=== PATIENT | female | born 1965 | race African-American/Black ===

== ENCOUNTER 2017-05-08 16:17 | Inpatient (IN) | payer OTHER ==
[~2017-05-08] VITALS: Ht 170.2 cm; Wt 111.1 kg
[~2017-05-08 16:17] MED LIST: ALBUTEROL2.5 MG/31 INH; FLEXERIL PO; IBUPROFEN 800800 M1 PO; NEURONTIN600 MG PO; PREDNISONE50 MG PO; SINGULAIR 10 MG10 M1 PO; VENTOLIN HFA 1818 GM INH
[2017-05-08 16:20] VITALS: BP 181/85
[2017-05-08 17:16] LABS: INFLUENZA A ANTIGEN None Detected (None Detect); INFLUENZA B ANTIGEN None Detected (None Detect)
[2017-05-08 17:17] LABS: HEMATOCRIT 38.6 % (37.0-47.0); HEMOGLOBIN 12.5 gm/dL (12.0-15.0); MCH 26.3 pg (26.0-34.0); MCHC 32.4 g/dL (28.0-37.0); MCV 81.2 fL (80.0-100.0); MPV 8.8 fl. (7.2-11.1); NUCLEATED RBCS 0 /100WBC; PLATELET COUNT* 251 thou/uL (150-400); RBC 4.75 mil/uL (4.20-5.00); RDW-CV 15.5 % (10.5-14.5); WBC 8.7 thou/uL (4.0-11.0)
[2017-05-08 17:25] LABS: CALCIUM 8.4 mg/dL (8.5-10.1); POTASSIUM 3.6 mmol/L (3.5-5.1)
[2017-05-08 17:36] LABS: ALBUMIN 3.7 g/dL (3.4-5.0); TOTAL BILIRUBIN 0.3 mg/dL (<0.1-1.0); TOTAL PROTEIN 7.6 g/dL (6.4-8.2)
[2017-05-08 17:38] LABS: NT-PRO BRAIN NAT PEPTIDE 90 pg/mL (<300); TROPONIN-I LEVEL <0.06 ng/mL (<0.06)
[2017-05-08 17:43] LABS: ABSOLUTE LYMPHOCYTES 0.5 thou/uL (0.8-5.3); ABSOLUTE MONOCYTES 0.1 thou/uL (0.0-1.2); ABSOLUTE NEUTROPHILS 8.1 thou/uL (1.6-8.1); PLATELET ESTIMATE ADEQUATE
[2017-05-08 19:03] VITALS: BP 155/85
[2017-05-08 20:00] VITALS: BP 154/89
[2017-05-09 00:38] VITALS: BP 152/88
[2017-05-09 04:05] VITALS: BP 165/95
--- NOTE | 2017-05-09 05:21 | NUR ---
PT ADMITTED FROM ER. HISTORY AND ASSESSMENT COMPLETE. O2 2L NC. CONTINUOUS PULSE OX. IVF STARTED. PT UP WITH STEADY GAIT. DENIES PAIN. CALL LIGHT IN REACH. BED IN LOWEST POSITION.
[2017-05-09 08:00] VITALS: BP 172/82
--- NOTE | 2017-05-09 08:20 | NUR ---
RECEIVED REPORT. ASSUMED CARE OF PT AT 0730. PT A&OX4. VSS. O2 SAT 100% ON 2L PER NC. CONTINUOUS O2 MONITORING IN PLACE. METAL PATTERNMAKER APPRENTICE IN PLACE TRACING SR. AM ASSESSMENT AND VITALS COMPLETED CHARTED. IV PATENT AND INFUSING. PT DENIES PAIN OR DISCOMFORT AT THIS TIME. PT GAIT STEADY AND COORDINATED - PT ABLE TO BE UP AD SANGEETA IN ROOM. FAMILY AT THE BEDSIDE. PT EATING AND DRINKING WITHOUT ISSUE. PT HAD BM THIS AM. PT INFORMED OF PLAN OF CARE. PT COMMUNICATES UNDERSTANDING. LOW FALL RISK PRECAUTIONS IN PLACE. CALL LIGHT IS WITHIN REACH. WILL CONTINUE TO MONITOR.
[2017-05-09 11:59] VITALS: BP 141/77
[2017-05-09 15:51] VITALS: BP 163/92
--- NOTE | 2017-05-09 19:37 | NUR ---
VSS. PT REMAINS A&O X4. O2 REMAINS >90% ON 2L PER NC. CARDIAC MONITOIR IN PLACE WITH NO CHANGES THIS SHIFT. IV PATENT AND INFUSING. PT EXPRESSED SOME ANXIETY OVER IV THERAPY; THERAPEUTIC COMMUNICATION INITIATED AND PT REASSURED. PT REPORTS BREATHING TREATMENTS ARE HELPING. PT UP AD SANGEETA TO THE BATHROOM WITHOUT ISSUES. PT EATING AND DRINKING WITHOUT ISSUE. FAMILY AT BEDSIDE. LOW FALL RISK PRECAUTIONS IN PLACE. CALL LIGHT IS WITHIN REACH. HOURLY ROUNDING PERFORMED.
[2017-05-09 20:00] VITALS: BP 143/84
[2017-05-10 00:18] VITALS: BP 157/91
--- NOTE | 2017-05-10 05:09 | NUR ---
PT CARE ASSUMED AFTER REPORT. ASSESSMENT COMPLETE. SR ON MONITOR. O2 2L NC. CONTINUOUS PULSE ON IN PLACE. IVF INFUSING WELL. PT RESTED POORLY R/T PRODUCTIVE COUGH. PT PROVIDED WITH HOT TEA TO RELIEVE COUGH. UP AD SANGEETA WITH STEADY GAIT. DAUGHTER AT BEDSIDE THROUGH THE NIGHT. CALL LIGHT IN REACH. BED IN LOWEST POSITION. SLOW TO PROGRESS TOWARDS GOALS. DENIES PAIN.
[2017-05-10 08:00] VITALS: BP 173/100
[2017-05-10 12:27] VITALS: BP 151/85
--- NOTE | 2017-05-10 13:03 | EKG ---
[place] [address] ELECTROCARDIOGRAM REPORT Name: CHRISTIANO BARNETT Room: [address] ADM IN M.R.#: [id number] Admission: 05/08/17 Attend Phys: Deandre Willoughby Discharge: Date of : 69 Report #: [id number] THIS REPORT FOR: //name// [facility] ED Test Date: 2017-05-08 Test Time: 16:26:04 Pat Name: CHRISTIANO BARNETT Department: Room: [facility] Gender: F Bottom Saw Operator: FLORA : 1965 Requested By: Silvio Nascimento Order Number: [id number] MD: Bo Pearson Measurements Intervals [place] Rate: 97 P: 70 MN: 148 QRS: 26 QRSD: 82 T: 22 QT: 357 QTc: 454 Interpretive Statements Sinus tachycardia Multiform ventricular premature complexes Probable left atrial enlargement No previous ECG available for comparison Electronically Signed On 05-10-2017 13:03:01 REMOTE PILOT OPERATOR by Bo Pearson [email or web address] <ELECTRONICALLY SIGNED> By: Bo Pearson MD, [facility] 05/10/17 1303 1626 162 Bo Pearson MD, [facility] /EPI
--- NOTE | 2017-05-10 14:45 | NUR ---
MET WITH PT TO DISCUSS HOME SITUATION/DC PLANNING. PT LIVES WITH HER ADULT DTR AND HER 4 CHILDREN. PT IS INDEPENDENT WITH HER ADLS AND ONLY USES A NEBULIZER. STATES SHE HAS BEEN ON MEDICAL LEAVE FROM HER JOB SINCE AUGUST. DID VOICE CONCERN ABOUT WHETHER SHE CAN CARE FOR HERSELF AT [place]. HASN'T HAD HH BUT IS INTERESTED IF IT IS COVERED BY HER INSURANCE. DISCUSSED OPTIONS AND WOULD WANT TO USE [facility] IF POSSIBLE. CALLED AND FAXED FACE SHEET TO [facility] TO CHECK BENEFITS
[2017-05-10 14:49] VITALS: BP 151/85
--- NOTE | 2017-05-10 16:31 | NUR ---
ASSUMED PT CARE AT 0700 PT IS ALERT AND ORIENTED X 4 PT IS NOT A FALL RISK PT IS UP AD SANGEETA, PT DENIES PAIN OR SOA, RESPIRTORY TOOK PT OFF OF O2 THIS AFTERNOON AND PT IS SATING ABOVE 90 PT IS SR ON MONITOR PT IS ON CONTINOUS O2 MONITORING, PT IS PLEASNAT AND COOPERATIVE, PT TOOK SHOWER, WILL CONTINUE TO MONITOR
[2017-05-10 16:45] VITALS: BP 146/87
[2017-05-10 20:00] VITALS: BP 149/70
[2017-05-11] VITALS: BP 164/86
--- NOTE | 2017-05-11 03:26 | NUR ---
ASSUMED CARE OF PATIENT AT 2029 THE PATIENT REMAINS SR ON THE MONITOR O2 SAT MAINTAINED ON RA EXCESSIVE SOA WITH EXERTION INCREASE WHEEZING AND RHONCI CONTINUES TO BE UP AD SANGEETA THE ROUTINE REGIMEN CONTINUES TO BE EFFECTIVE FOR SX MANAGEMENT SAFETY INTERVENTIONS CONTINUE BED LOWERED WHEELS LOCKED CALL LIGHT IN REACH SIDE RAILS UP REPORT TO BE GIVEN TO ONCARTURO PIERSON
[2017-05-11 04:00] VITALS: BP 163/76
[2017-05-11 08:00] VITALS: BP 160/80
[2017-05-11 11:22] VITALS: BP 165/96
--- NOTE | 2017-05-11 12:16 | NUR ---
PER [facility], PT HAS 100% COVERAGE FOR HH. DISCUSSED WITH PT. SHE WOULD LIKE TO HAVE HH AT [place] AND IS PLEASED HAS COVERAGE. WILL DISCUSS WTIH
[2017-05-11 13:52] LABS: HEMATOCRIT 34.6 % (37.0-47.0); HEMOGLOBIN 11.1 gm/dL (12.0-15.0); MCH 26.2 pg (26.0-34.0); MCHC 32.2 g/dL (28.0-37.0); MCV 81.6 fL (80.0-100.0); MPV 9.3 fl. (7.2-11.1); NUCLEATED RBCS 0 /100WBC; PLATELET COUNT* 262 thou/uL (150-400); RBC 4.25 mil/uL (4.20-5.00); RDW-CV 15.3 % (10.5-14.5); WBC 13.6 thou/uL (4.0-11.0)
[2017-05-11 13:58] LABS: CALCIUM 7.7 mg/dL (8.5-10.1); CREATININE 0.9 mg/dL (0.6-1.3); MAGNESIUM 2.2 mg/dL (1.8-2.4); POTASSIUM 3.7 mmol/L (3.5-5.1)
[2017-05-11 14:34] LABS: ABSOLUTE LYMPHOCYTES 2.2 thou/uL (0.8-5.3); ABSOLUTE MONOCYTES 0.4 thou/uL (0.0-1.2); ATYPICAL LYMPHS 1 %; HYPOCHROMASIA 2+; PLATELET ESTIMATE ADEQUATE
[2017-05-11 16:46] VITALS: BP 168/88
--- NOTE | 2017-05-11 18:30 | NUR ---
RECEIVED REPORT, ASSUMED CARE OF PT AT 0730. PT A&OX4. VSS. O2 SAT 93% ON ROOM AIR. CONTINUOUS O2 SAT MONITORING IN PLACE. PROGRAM ENGINEER IN PLACE TRACING SR, WITH NO CHANGES THIS SHIFT. AM ASSESSMENT AND VITALS COMPLETED CHARTED. PT INFORMED OF PLAN OF CARE, COMMUNICATES UNDERSTANDING. PT EATING AND DRINKING WITHOUT ISSUE. PT UP AD SANGEETA IN ROOM. FAMILY AT BEDSIDE OFF AND ON. PT CONTINUING TO RECEIVE BREATHING TREATMENTS. IV PATENT AND INFUSING. PT HAS DENIED PAIN OR DISCOMFORT THROUGHOUT THE SHIFT. PT VOIDING WITHOUT DIFFICUTLY. PT SLOWLY PROGRESSING TOWARDS GOALS. HOURLY ROUNDING PERFORMED. LOW RISK FALL PRECAUTIONS IN PLACE. CALL LIGHT IS WITHIN REACH.
[2017-05-11 20:00] VITALS: BP 148/88
[2017-05-12 00:05] VITALS: BP 158/83
[2017-05-12 03:54] VITALS: BP 156/87
--- NOTE | 2017-05-12 04:35 | NUR ---
PT ALERT ORIENTED. BREATH SOUNDS COURSE WITH WHEEZING THROUGHOUT. ON RA. CONTINUOUS PULSE IN THE UPPER 90S. TELEMETRY SHOWS SR OCCASIONAL PAC. WILL CONTINUE TO MONITOR.
[2017-05-12 08:17] VITALS: BP 166/86
--- NOTE | 2017-05-12 11:22 | NUR ---
ASSUMED CARE OF PT THIS AM AROUND 07- OIL FIELD EQUIPMENT MECHANIC IN PLACE ORDERED, TRACING SR/SB- UPON ASSESSMENT PT NOTED TO BE RESTING IN BED- PT A&O X4- CONTINENT OF BOWEL AND BLADDER- UP AD-SANGEETA WITH STEADY GAIT- COURSE LUNG SOUDS WITH AUDIBLE WHEEZING NOTED, BREATHING TX PRESCRIBED PER RT-SOA NOTED ON EXERTION- VSS, O2 SAT 95% ON RA, CONTINUOUS PULSE OX D/C'D PER THIS AM WITH PULMONARY CONSULT INTIATED- ABDOMEN SOFT/ROUND NON-TENDER, BS X4 QUADS- LAST BM REPORTED 05/11/17- 1+ NON-PITTING EDEMA NOTED TO BLE, LEG ELEVATION AT REST ENCOURAGED- IV NOTED TO LEFT FA INTACT WITH IV ABT GIVEN THIS AM PRESCRIBED- PT DENIES ANY PAIN/DISCOMFORT AT THIS TIME- CALL LIGHT AND PERSONAL BELONGINGS WITH IN REACH- PT MAKES NEEDS KNOWN- ALL NEEDS MET AT THIS TIME-WCTM
[2017-05-12 12:21] VITALS: BP 162/86
--- NOTE | 2017-05-12 14:16 | NUR ---
Nutrition: Pt admitted with SOA. On breathing treatment., steroids. Regular diet. Eating well. Wt: 266#. BG 141, albumin 3.7. No nutrition concerns at this time. Low risk.
--- NOTE | 2017-05-12 14:46 | NUR ---
CONTINUE TO FOLLOW. PT HAD PULMONARY CONSULT TODAY. STATES FEELING SOME IMPROVED. ASKED ABOUT HOW TO APPLY FOR DISABILITY. GAVE PT INFO WELL [facility] INFO. SHE STILL WANTS TO USE [facility] [place]. THEY WILL NEED ORDER CALLED AND FAXED TO THEM [facility] [phone] FAX [phone]
[2017-05-12 16:00] VITALS: BP 144/94
--- NOTE | 2017-05-12 18:30 | NUR ---
PT ELANA RESTING IN BED SIDE CHAIR, FAMILY AT SIDE VISITING- PT MADE MS STATUS WITH PROOF CLERK D/C'D THIS SHIFT- IV TO LEFT FA CONTINUED INDICATED, IV SOLU MED AND IV ABT GIVEN PRESCRIBED- CONTINUED COUGH NOTED- LOVENOX DAILY ADDED- GOOD PO INTAKE NOTED WITH MEALS- PT DENIES ANY C/O PAIN/DISCOMFORT AT THIS TIME- CALL LIGHT AND PERSOANL BELONGINGS WITH IN REACH- ALL NEEDS MET AT THIS TIME-WCTM
[2017-05-12 20:00] VITALS: BP 163/97
--- NOTE | 2017-05-12 20:00 | NUR ---
RECEIVED REPORT AND ASSUMED CARE OF PT, ASSESSMENT COMPLETED. PT VERY SOB, LABORED AND AUDIBLE RHONCI. O2 SAT 97% ON RA. CALLED FOR RT TREATMENT. PT CONCERNED OVER IV SITE, REASSURANCE GIVEN AND WILL ATTEMPT A RESTART. WILL CONT TO MONITOR AND ASSIST NEEDED.
[2017-05-13 00:26] VITALS: BP 172/91
--- NOTE | 2017-05-13 06:30 | NUR ---
AWAKE OCC DURING NIGHT. HAVING INTERMITTENT RESP ISSUES WITH ACTIVITY. IV RESTARTED WITH DIFFICULTY. GAIT STEADY WITH AMBULATION AROUND ROOM. ADVANCING TOWARDS GOALS. HOURLY ROUNDING OBSERVED.
[2017-05-13 08:03] VITALS: BP 154/82
--- NOTE | 2017-05-13 09:59 | NUR ---
ASSUMED CARE OF PT THIS AM AROUND 714- UPON ASSESSMENT PT NOTED TO BE RESTING IN BED SIDE CHAIR COUPONING- PT A&O X4- CONTINET OF BOWEL AND BLADDER- UP AD-SANGEETA WITH STEADY GAIT NOTED- EXPIRATORY RHONCHI NOTED, AUDIBLE WHEEZING-CONTINUED COUGH WITH REPORTED YELLOW SPEUTUM- SOA WITH EXERTION- VSS, 02 SAT 99% ON RA- BREATHING TX PER R/T- ABDOMEN SOFT/ROUND/NON-TENDER, BS X4 QUADS- LAST BM REPORTED LAST HS- 1+ BLE EDEMA NOTED, LEG ELEVATION ENCOURAGED- IV NOTED TO LEFT HAND INTACT, IV ABT GIVEN THIS AM PRESCRIBED- PT DENIES ANY C/O PAIN/DISCOMFORT AT THIS TIME- CALL LIGHT AND PERSONAL BELONGINGS WITH IN REACH-PT MAKES NEEDS KNOWN- ALL NEEDS MET AT THIS TIME-WCTM
--- NOTE | 2017-05-13 11:27 | CON ---
[address] [address] CONSULTATION Name: CHRISTIANO BARNETT Room: [address] ADM IN M.R.#: [id number] Admission: 05/08/17 Attend Phys: Deandre Willoughby Discharge: Date of : 69 Report #: [id number] THIS REPORT FOR: //name// CC: Anne Marie Hahn REASON FOR THE CONSULT: Asthma exacerbation. HISTORY OF PRESENT ILLNESS: This is a 51-year-old female patient who had asthma since 1990. She never smoked before. At one point, she saw a cook pressure and she was on Symbicort, but she had been off this medicine for a while. She is not sure why. She did not follow up with her cook pressure and this medication dropped off from her medication. At the baseline, she tells me she would use the inhaler even on a good day couple of times a day, sometimes up to every 4 hours and that is at home. She also is on Singulair. She presented to the hospital with increasing shortness of breath of couple of weeks' duration. At one point, she was seen in the ER, given a steroid taper and went home. She did not improve. She came back and she was admitted to the hospital initially with acute hypoxemic respiratory failure. She has significant cough producing sputum, sometimes yellow in color and sometimes it is clear, although she did not see any hemoptysis. She had been wheezing. Even at baseline she has wheezes, but the wheezing is getting worse and her symptoms are severe. She reports she can walk only from the bathroom to her bed and back and that she is tired and she has to require breathing treatments. Unfortunately, I do not have a baseline PFT for her. She does not recall the name of her cook pressure. She has a son with asthma, but no other family history of asthma. She never smoked before. She has no headache or blurring of vision. She is not aware of any fever, nasal discharge or obstruction, postnasal drip. She has no abdominal pain. No lower extremity edema. She told me she gets asthma exacerbation 4 times a year. Last time she was hospitalized was couple of years ago at [facility], never been intubated, never had to be in ICU or on BiPAP support. ALLERGIES: No known drug allergies. HOME MEDICATIONS: She is on albuterol, ibuprofen, cyclobenzaprine, gabapentin, albuterol HFA and Singulair. PAST MEDICAL HISTORY: Asthma and back pain secondary to bulging disk. FAMILY HISTORY: Positive for asthma in her son. No other family members with asthma. SOCIAL HISTORY: She does not smoke, drink alcohol or abuse drugs. REVIEW OF SYSTEMS: Full systems reviewed with the [place] [address] CONSULTATION Name: CHRISTIANO BARNETT Room: [address] IN [facility].#: [id number] Admission: 05/08/17 Attend Phys: Deandre Willoughby Discharge: Date of : 69 Report #: [id number] as mentioned above. PHYSICAL EXAMINATION: VITAL SIGNS: On examination, she is on room air, O2 saturation more than 90%, blood pressure 166/86, breathing 20 times a minute and temperature 36.9. GENERAL APPEARANCE: Awake, alert and oriented. She gets tachypneic towards the end of the sentence, but she does speak in full sentence. She has some mild increased work of breathing with speaking, but comfortable at rest. HEAD: Normocephalic and atraumatic. EYES: Pupils are equal and reactive to light. Extraocular muscle movements intact. No jaundice. External ears look healthy and normal. Oral cavity: Moist mucous membrane. Mallampati 2 to 3. NECK: Supple. No lymphadenopathy. Trachea central. CHEST: Diminished air movement bilaterally with wheezes bilaterally, prolonged expiratory phase, rhonchi heard and rattling cough. HEART: S1 and S2. No murmur. ABDOMEN: Benign, soft, lax, nontender. EXTREMITIES: Lower extremities: No edema. No calf tenderness. SKIN: Normal for age and race. No rashes. PSYCHIATRIC: Mood and affect slightly anxious. Good insight and judgment. NEUROLOGIC: Moving 4 extremities spontaneously. No focal weakness. Cranial nerves grossly normal. LYMPHATICS: No palpable lymph node. LABORATORY DATA: Her white blood count upon hospitalization 8.7, hemoglobin 12.5 and platelets of 251. Her differential does not show abnormality, specifically no eosinophilia. Her influenza screen is negative. She had two chest x-rays during this hospitalization, showed basilar atelectasis. Her CT chest was negative for PE, but also confirmed the atelectasis and there is some fluid in the esophagus. CURRENT MEDICATIONS: She is on Brovana, Pulmicort, Lovenox, azithromycin, steroids, guaifenesin, Rocephin and montelukast. IMPRESSION: 1. Acute hypoxic respiratory failure. 2. Asthma exacerbation. 3. Severe persistent asthma. 4. Possible gastroesophageal reflux disease with the finding on the CT scan. At this point, I will continue the patient on IV steroids. There is some improvement compared to hospitalization time. However, I would continue the steroids and increase the dose for now. Continue Brovana, Pulmicort and scheduled nebulization treatment. I am going to add Atrovent to her breathing treatments. Continue Singulair. At the time of discharge, definitely she needs to be on inhaled steroids and long-acting beta-agonist [place] [id number] CONSULTATION Name: CHRISTIANO BARNETT Room: [address] IN .R.#: [id number] Admission: 05/08/17 Attend Phys: Deandre Willoughby Discharge: Date of : 69 Report #: [id number] substitutes. We will check her IgE level and she needs to be treated for any evidence of reflux disease that might be a contributing factor to controlling her asthma. Thank you for the consult. We will follow along with you. <ELECTRONICALLY SIGNED> By: Servando Saldivar MD 05/13/17 1127 1338 1823Dalma Saldivar MD /sheryl
[2017-05-13 15:42] VITALS: BP 143/78
--- NOTE | 2017-05-13 19:04 | NUR ---
PT ELANA RESTING IN BED SIDE CHAIR, FAMILY AT SIDE VISITTING- IV TO LEFT HAND INTACT AND CONTINUED INDICATED- BREATHING TX CONTINUED PER RT PRESCRIBED- COUGH CONTINES WITH SPEUTUM- PT DENIES ANY C/O PAIN/DISCOMFORT AT THIS TIME- CALL LIGHT AND PERSONAL BELONGINGS WITH IN REACH- ALL NEEDS MET AT THIS TIME- WCTM
[2017-05-13 20:00] VITALS: BP 141/90
--- NOTE | 2017-05-13 20:00 | NUR ---
RECEIVED REPORT AND ASSUMED CARE OF PT, ASSESSMENT COMPLETED. FAMILY AT BEDSIDE. PT LAUGHING AND TALKING. DOES BECOME SOB WITH TOO MUCH ACTIVITY AND AUDIBLE WHEEZING OCCURES. AMBULATING MORE AROUND ROOM. WILL CONT TO MONITOR AND ASSIST NEEDED.
[2017-05-14] VITALS: BP 157/77
--- NOTE | 2017-05-14 07:00 | NUR ---
INCREASED AMBULATION AROUND ROOM. STILL BECOMES DYSPENIC WITH ACTIVITY. NO CHANGE IN ASSESSMENT. NO COMPLAINTS VOICED. ADVANCING TOWARDS DISCHARGE GOALS. HOURLY ROUNDING OBSERVED.
[2017-05-14 08:00] VITALS: BP 150/81
[2017-05-14 12:00] VITALS: BP 144/84
[2017-05-14 12:13] LABS: CALCIUM 8.4 mg/dL (8.5-10.1); CREATININE 0.8 mg/dL (0.6-1.3); MAGNESIUM 2.4 mg/dL (1.8-2.4); POTASSIUM 3.9 mmol/L (3.5-5.1)
[2017-05-14 16:32] VITALS: BP 122/76
--- NOTE | 2017-05-14 18:06 | NUR ---
PT PARTIALLY PROGRESSING TOWARDS GOALS. NO COMPLAINTS OF PAIN THIS SHIFT. PT VERY SHORT OF BREATH WITH ANY ACTIVITY. TOLERATING HER DIET WELL WITHOUT NAUSEA OR VOMITING. UP AD SANGEETA IN ROOM WITH BATHROOM PRIVILEDGES. GAIT IS STEADY. PATIENT WAS ABLE TO SHOWER TODAY BUT STATED SHE WAS VERY SHORT OF BREATH DURING AND AFTER. CALL LIGHT WITHIN REACH. WILL CONTINUE TO MONITOR.
[2017-05-14 20:10] VITALS: BP 150/88
[2017-05-15] VITALS: BP 151/69
[2017-05-15 04:53] LABS: HEMATOCRIT 34.4 % (37.0-47.0); HEMOGLOBIN 11.1 gm/dL (12.0-15.0); MCH 25.7 pg (26.0-34.0); MCHC 32.2 g/dL (28.0-37.0); MCV 79.9 fL (80.0-100.0); MPV 9.5 fl. (7.2-11.1); NUCLEATED RBCS 0 /100WBC; PLATELET COUNT* 243 thou/uL (150-400); RBC 4.31 mil/uL (4.20-5.00); WBC 13.2 thou/uL (4.0-11.0)
[2017-05-15 05:02] LABS: CALCIUM 7.8 mg/dL (8.5-10.1); CREATININE 0.8 mg/dL (0.6-1.3); MAGNESIUM 2.3 mg/dL (1.8-2.4); PHOSPHORUS* 3.7 mg/dL (2.5-4.9); POTASSIUM 3.5 mmol/L (3.5-5.1); TOTAL BILIRUBIN 0.2 mg/dL (<0.1-1.0); TOTAL PROTEIN 6.1 g/dL (6.4-8.2)
--- NOTE | 2017-05-15 05:55 | NUR ---
ASSUMED CARE AROUND 1930. PT A/OX4 AND PLEASANT, NO NEW CONCERNS VOICED DURING NIGHT. PT SEEMED TO REST WELL. MED/SURG STATUS. ON ROOM AIR, ORTHOPNEA, AUDIBLE WHEEZING. IV SALINE LOCKED. DENIED ANY PAIN. UP AD SANGEETA. VSS, AFEBRILE. CALL LIGHT IN REACH, WILL CONTINUE WITH PLAN OF CARE.
[2017-05-15 06:17] LABS: ABSOLUTE LYMPHOCYTES 1.1 thou/uL (0.8-5.3); ABSOLUTE MONOCYTES 0.1 thou/uL (0.0-1.2); PLATELET ESTIMATE ADEQUATE
[2017-05-15 08:30] VITALS: BP 139/79
--- NOTE | 2017-05-15 08:30 | NUR ---
ASSUMED PT. CARE AND RECEIVED REPORT AT 0730. PT A/OX4, VSS, PT. MED/SURG STATUS. PT. DENIES CURRENT PAIN. STATES SHE DID NOT SLEEP WELL DUE TO COUGHING ALL NIGHT. FULL ASSESSMENT COMPLETED, REFER TO CHARTING. ON RA @ 91-92%. CALL LIGHT IN REACH, WILL CONTINUE WITH PLAN OF CARE.
[2017-05-15 13:22] VITALS: BP 129/87
[2017-05-15 16:30] VITALS: BP 128/76
--- NOTE | 2017-05-15 19:28 | NUR ---
PT. STABLE THROUGH OUT THE DAY. CONTINUES TO FEEL CONGESTED AND PRODUCTIVE COUGH. LASIX/SPIRALACTONE GIVEN PER ORDERS, PT. REPORTS GOOD OUTPUT, HOWEVER NOT MEASURED. HOURLY ROUNDING COMPLETED THROUGH OUT THE DAY FOR PT. SAFETY.
[2017-05-15 20:00] VITALS: BP 127/80
[2017-05-16] VITALS: BP 125/80
[2017-05-16 05:21] LABS: CALCIUM 8.2 mg/dL (8.5-10.1); MAGNESIUM 2.3 mg/dL (1.8-2.4)
--- NOTE | 2017-05-16 06:53 | NUR ---
PT REMAIN A/OX4, MED/SURG STATUS, RA, BREATHING TX SCHEDULED, UP AD SANGEETA, FREE FROM PAIN, PT STATED HER SOA IS BETTER AND DID NOT REQUEST ANY PRN TREATMENTS OVER NIGHT, MEDS/ASSESSMENT PER CHARTING, HOURLY ROUNDING IN PLACE, FALL PRECAUTIONS IN PLACE AND CALL LIGHT IN REACH AT ALL TIMES, VSS, MEDS/ASSESSMENT PER CHARTING, WILL CONT TO MONITOR.
[2017-05-16 08:00] VITALS: BP 140/79
[2017-05-16 12:03] VITALS: BP 119/73
--- NOTE | 2017-05-16 16:21 | 2DMMODE ---
[place] [address] 2 D/M-MODE ECHOCARDIOGRAM Name: CHRISTIANO BARNETT Room: [address] ADM IN .R.#: [id number] Admission: 05/08/17 Attend Phys: Warren Hahn Discharge: Date of : 69 Date of Service: 05/16/17 1621 Report #: [id number] THIS REPORT FOR: //name// APPROVED REPORT Study performed: 05/16/2017 13:47:44 EXAM: Comprehensive 2D, Doppler, and color-flow Echocardiogram Patient Location: Bedside BSA: 2.28 HR: 68 bpm BP: 125/80 mmHg Other Information Study Quality: Good Indications Shortness of Breath 2D Dimensions LVEF(%): 70.55 (>50%) IVSd: 8.40 (7-11mm) LVOT Diam: 22.65 (18-24mm) LVDd: 49.83 mm PWd: 10.98 (7-11mm) Ascending Ao: 30.75 (22-36mm) LVDs: 29.84 (25-40mm) Aortic Root: 30.79 mm Don's LVEF: 70.55 % Volumes Left Atrial Volume (Systole) LA ESV Index: 34.90 mL/m2 Aortic Valve AoV Peak Eder.: 1.39 m/s AO Peak Gr.: 7.71 mmHg LVOT Max P.92 mmHg AO Mean Gr.: 4.44 mmHg LVOT Mean P.85 mmHg LVOT Max V: 1.22 m/s AO V2 VTI: 29.67 cm LVOT Mean V: 0.77 m/s INNA (VTI): 3.82 cm2 LVOT V1 VTI: 28.13 cm Mitral Valve E/A Ratio: 0.96 MV Decel. Time: 194.79 ms MV E Max Eder.: 0.80 m/[place] [address] 2 D/M-MODE ECHOCARDIOGRAM Name: CHRISTIANO BARNETT Room: [address] IN .R.#: [id number] Admission: 05/08/17 Attend Phys: Warren Hahn Discharge: Date of : 69 Date of Service: 05/16/17 1621 Report #: [id number] MV PHT: 56.49 ms MVA (PHT): 3.89 cm2 TDI E/Lateral E': 8.00 E/Medial E': 8.00 Medial E' Eder.: 0.10 m/s Lateral E' Eder.: 0.10 m/s Pulmonary Valve PV Peak Eder.: 0.78 m/s PV Peak Gr.: 2.41 mmHg Tricuspid Valve RAP Estimate: 10.00 mmHg TR Peak Gr.: 27.19 mmHg RVSP: 10.00 mmHg PA Pressure: 37.19 mmHg Left Ventricle The left ventricle is normal size. There is normal LV segmental wall motion. There is normal left ventricular wall thickness. Left ventricular systolic function is normal. LVEF is 60-65%. Transmitral Doppler flow pattern suggests impaired LV relaxation. Right Ventricle The right ventricle is normal size. The right ventricular systolic function is normal. Atria Left atrium is mildly dilated. The right atrium size is normal. Aortic Valve The aortic valve is normal in structure. No aortic regurgitation is present. There is no aortic valvular stenosis. Mitral Valve The mitral valve is normal in structure. Trace mitral regurgitation. No evidence of mitral valve stenosis. Tricuspid Valve The tricuspid valve is normal in structure. Mild tricuspid regurgitation. The RVSP is 30-35 mmHg. Pulmonic Valve The pulmonary valve is normal in structure. [place] [address] 2 D/M-MODE ECHOCARDIOGRAM Name: CHRISTIANO BARNETT Room: [address] IN [facility]#: [id number] Admission: 05/08/17 Attend Phys: Warren Hahn Discharge: Date of : 69 Date of Service: 05/16/17 1621 Report #: [id number] Great Vessels The aortic root is normal in size. IVC is normal in size and collapses with >50% inspiration Pericardium Trace pericardial effusion. <Conclusion> The left ventricle is normal size. There is normal left ventricular wall thickness. Left ventricular systolic function is normal. LVEF is 60-65%. Transmitral Doppler flow pattern suggests impaired LV relaxation. Left atrium is mildly dilated. Mild tricuspid regurgitation. The RVSP is 30-35 mmHg. Trace pericardial effusion. <ELECTRONICALLY SIGNED> By: Warren Keith MD, FACC 05/16/17 1621 162 162 Warren Keith MD, FACC /INF
[2017-05-16 16:23] VITALS: BP 115/62
--- NOTE | 2017-05-16 18:29 | NUR ---
ASSUMED RESPONSIBILITY OF PT THIS AM PT IS ALERT AND ORIENTED X4 UP AD SANGEETA IN ROOM LS ARE COARSE WITH WHEEZES IN LL ABT AND STEROID CHANGED TO PO RIGHT HAND IV 22G CONT IV ANTIBIOTICS AND LASIX GIVEN VERY SLOW TO HELP SUSTAIN IV PT WITH GOOD APPETITE T/O DAY PT DENIES ANY PAIN OR DISCOMFORT NO OTHER ISSUES NOTED
[2017-05-16 20:00] VITALS: BP 125/69
[2017-05-17] VITALS: BP 152/79
[2017-05-17 03:00] VITALS: BP 148/82
--- NOTE | 2017-05-17 04:26 | NUR ---
PT A/OX4, MED/SURG STATUS, RA, UP AD SANGEETA, REPORTS FEELING BETTER, LESS SOA, MEDS/ASSESSMENT PER CHARTING, HOURLY ROUNDING IN PLACE, FALL PRECAUTIONS IN PLACE, PT USES CALL LIGHT AND ABLE TO REPORT HER NEEDS, IV RH SL, VSS, WILL CONT TO MONITOR.
--- NOTE | 2017-05-17 07:25 | NUR ---
CHANGE OF SHIFT, BEDSIDE REPORT GIVEN ASSUMED PATIENT CARE PATIENT SEEN AT BEDSIDE, IN BED ASLEEP
[2017-05-17 08:00] VITALS: BP 170/89
--- NOTE | 2017-05-17 11:55 | NUR ---
OT SCREEN PERFORMED: PT UP AT SANGEETA IN ROOM AND ON UNIT. PT IS CURRENTLY COMPLETING BASIC CARES WITH NO ASSIST FROM STAFF. PT DOES REPORTS GENERALIZED FATIGUE AND LOW ENDURANCE WHICH P.T. WILL ADDRESS WITH GAIT AND EXERCISE. NO SKILLED OT INDICATED AT THIS TIME.
[2017-05-17] MEDS ORDERED: PROTONIX40 M1 PO (14:09)
[2017-05-17] MEDS ORDERED: PREDNISONE 20 M20 MG PO (14:27)
[2017-05-17 14:31] VITALS: BP 151/85
[2017-05-17] MEDS ORDERED: AUGMENTIN 875-1 EACH PO (14:44)
--- NOTE | 2017-05-17 15:14 | NUR ---
PATIENT DCD TO HOME PER DRS ORDERS ALL DC INSTRUCTIONS GIVEN AND ACKNOWLEDGED AND SIGNED COPIES GIVEN IV REMOVED PERSONAL BELONGINGS RETURNED PATIENT ASSISTED OUT VIA WC GOOD CONDITION TO WAITING CAR
== END 2017-05-17 15:19 | disposition home or self-care (01) | DRG 871 ==
LOC: M.ERS 16:17 → M.2W 17:46 → M.TBA-ER 17:46 → M.2W 19:20
PROVIDERS: Internal Medicine Critical Care Medicine; Physician Assistant; ADMIT Internal Medicine
DX: A41.9 Sepsis, unspecified organism (principal); J96.01 Acute respiratory failure with hypoxia; J15.9 Unspecified bacterial pneumonia; J45.901 Unspecified asthma with (acute) exacerbation; R65.10 Systemic inflammatory response syndrome (SIRS) of non-infectious origin without acute organ dysfunction; J20.9 Acute bronchitis, unspecified; K21.9 Gastro-esophageal reflux disease without esophagitis; Z79.899 Other long term (current) drug therapy; Z82.5 Family history of asthma and other chronic lower respiratory diseases

== ENCOUNTER 2017-06-30 21:39 | Inpatient (IN) | payer OTHER ==
[~2017-06-30] VITALS: Ht 170.2 cm; Wt 118.8 kg
[~2017-06-30 21:39] MED LIST changes: +AUGMENTIN 875-1 EACH PO; +PREDNISONE 20 M20 MG PO; +PROTONIX40 M1 PO
[2017-06-30 21:52] VITALS: BP 143/101
[2017-06-30] MEDS ORDERED: DOXYCYCLINE 10100 MG PO (21:56)
[2017-06-30] MEDS ORDERED: LASIX 20 MG TAB20 MG PO (21:56)
[2017-06-30] MEDS ORDERED: SYMBICORT160 MCG/4. INH (21:56)
[2017-06-30 22:21] LABS: HEMATOCRIT 37.1 % (37.0-47.0); HEMOGLOBIN 12.2 gm/dL (12.0-15.0); MCH 26.6 pg (26.0-34.0); MCHC 32.7 g/dL (28.0-37.0); MCV 81.1 fL (80.0-100.0); MPV 9.6 fl. (7.2-11.1); NUCLEATED RBCS 0 /100WBC; PLATELET COUNT* 150 thou/uL (150-400); RBC 4.58 mil/uL (4.20-5.00); RDW-CV 15.9 % (10.5-14.5); WBC 3.7 thou/uL (4.0-11.0)
[2017-06-30 22:28] LABS: CALCIUM 8.3 mg/dL (8.5-10.1); CREATININE 1.1 mg/dL (0.6-1.3); POTASSIUM 4.2 mmol/L (3.5-5.1)
[2017-06-30 22:33] LABS: ALBUMIN 3.4 g/dL (3.4-5.0); MAGNESIUM 2.2 mg/dL (1.8-2.4); PHOSPHORUS* 3.2 mg/dL (2.5-4.9); TOTAL BILIRUBIN 0.5 mg/dL (<0.1-1.0); TOTAL PROTEIN 6.9 g/dL (6.4-8.2)
[2017-06-30 22:49] LABS: ABSOLUTE LYMPHOCYTES 2.3 thou/uL (0.8-5.3); ABSOLUTE MONOCYTES 0.3 thou/uL (0.0-1.2); ABSOLUTE NEUTROPHILS 1.1 thou/uL (1.6-8.1); ATYPICAL LYMPHS 1 %; PLATELET ESTIMATE ADEQUATE
[2017-06-30 23:28] LABS: TROPONIN-I LEVEL <0.06 ng/mL (<0.06)
[2017-07-01] VITALS (7 sets, daily range): BP systolic 122–155; BP diastolic 68–93
[2017-07-01 00:12] LABS: INFLUENZA A ANTIGEN None Detected (None Detect); INFLUENZA B ANTIGEN None Detected (None Detect)
--- NOTE | 2017-07-01 10:32 | EKG ---
[place] [address] ELECTROCARDIOGRAM REPORT Name: CHRISTIANO BARNETT Room: [address] ADM IN .R.#: [id number] Admission: 06/30/17 Attend Phys: Olvin Long Discharge: Date of : 69 Report #: [id number] THIS REPORT FOR: //name// [facility] ED Test Date: 2017-06-30 Test Time: 22:31:10 Pat Name: CHRISTIANO BARNETT Department: Room: [facility] Gender: F Clinical Education Manager: ASHLEIGH Neville : 1965 Requested By: Holly Castaneda Order Number: [id number] MD: Isaak Sutton Measurements Intervals [place] Rate: 75 P: 56 [place]: 156 QRS: 7 QRSD: 77 T: 15 QT: 386 QTc: 432 Interpretive Statements Sinus rhythm Left atrial enlargement septal infarct, age indeterminate Compared to ECG 05/08/2017 16:26:04 Myocardial infarct finding now present Ventricular premature complex(es) no longer present Electronically Signed On 07-01-2017 10:32:42 CHAIRMAN PRESIDENT AND CHIEF EXECUTIVE OFFICER by Isaak Sutton [email or web address] <ELECTRONICALLY SIGNED> By: Isaak Sutton MD, FACC 07/01/17 1032 30 30 Isaak Sutton MD, [facility] /EPI
[2017-07-02 03:32] VITALS: BP 142/79
[2017-07-02 08:00] VITALS: BP 123/73
[2017-07-02 16:26] VITALS: BP 132/83
[2017-07-02 20:00] VITALS: BP 124/75
[2017-07-02 23:57] VITALS: BP 115/72
[2017-07-03 03:53] VITALS: BP 119/60
[2017-07-03 08:00] VITALS: BP 125/72
[2017-07-03] MEDS ORDERED: LEVAQUIN 750 M750 MG PO (08:35)
[2017-07-03] MEDS ORDERED: PREDNISONE 10 M10 M1 PO (08:35)
[2017-07-03 13:55] VITALS: BP 125/72
--- NOTE | 2017-07-05 09:09 | CON ---
[address] [id number] CONSULTATION Name: CHRISTIANO BARNETT Room: [address] M.R.#: [id number] Admission: 06/30/17 Attend Phys: Olvin Long Discharge: 07/03/17 Date of : 69 Report #: [id number] THIS REPORT FOR: //name// CC: JULIANE physician/PCP Perry Gomez DATE OF SERVICE: 07/01/2017 REFERRING PHYSICIAN: Noel Caballero MD CHIEF COMPLAINT: Dyspnea. HISTORY OF PRESENT ILLNESS: The patient is a 51-year-old female who is a lifelong nonsmoker with a history of bronchial asthma. She was recently hospitalized at this institution on around 05/08/2017, discharged several days later. She was in with an exacerbation of her asthma at that time. She is a nonsmoker, but states that yesterday she developed some chest discomfort. She described it as a discomfort per se. It radiated into her shoulder. It lasted for about 3 hours. It did not improve; as a result, she presented to the Emergency Room. According to the patient, her asthma condition has never really improved. She is still struggled with the wheezing, shortness of breath. Chest pain, according to the patient, is a new entity that she had never experienced before. She did not have any other associated symptoms such as dizziness, headache, blurred vision, nausea, vomiting, cough, phlegm production. She denies diarrhea, constipation, hematuria, dysuria or flank pain. She did not have any numbness or tingling. PAST MEDICAL HISTORY: Significant for asthma. MEDICATION ALLERGIES: None known. MEDICATIONS PRIOR TO ADMISSION: Include aerosol treatments with bronchodilator therapy. I presume DuoNeb. She states that she is on Azmacort inhaler. She completed out a tapering course of steroids. She is also on montelukast 10 mg at bedtime. ALLERGIES: None known. FAMILY HISTORY: Negative for coronary artery disease. SOCIAL HISTORY: She is a nonsmoker. [place] [address] CONSULTATION Name: CHRISTIANO BARNETT Room: [address]#: [id number] Admission: 06/30/17 Attend Phys: Olvin Long Discharge: 07/03/17 Date of : 69 Report #: [id number] REVIEW OF SYSTEMS: System review negative other than what is outlined above. Reviewed her record. She was admitted on 05/08, discharged on 05/17/2017. PHYSICAL EXAMINATION: VITAL SIGNS: Blood pressure 122/70, respiratory rate 16 and nonlabored, pulse rate 79 and regular, temperature 98 degrees. Her weight 245 pounds. GENERAL APPEARANCE: Awake, alert, oriented, no distress. HEAD: Atraumatic. EYES: Pupils are round, equal, reactive. No scleral icterus. ORAL CAVITY: Moist. No lesions. NOSE: Nasal passages are patent. No evidence of polyps. NECK: Without adenopathy. CHEST: Reveals scattered rhonchi, few scattered end-expiratory wheezes, no crackles. Breath sounds are equal, symmetrical expansion is noted. CARDIOVASCULAR: Regular rhythm. No murmurs or rubs. ABDOMEN: Soft without organomegaly, no tenderness. EXTREMITIES: No evidence of edema, clubbing or cyanosis. SKIN: There is no rash. Her skin is intact, otherwise. LYMPHATICS: Negative. Pulses are equal bilaterally. NEUROLOGIC: Moves all 4 extremities. LABORATORY DATA: Admission electrolytes; sodium 140, potassium 4.2, chloride 104, CO2 of 31, BUN of 18, creatinine 1.1, EGFR 64. Bilirubin and enzymes are normal. Hemoglobin and hematocrit of 12 and 37 with a white count of 3700. No eosinophils. Chest x-ray is negative for any acute infiltrates. CTA of the chest on 05/08 did not reveal any evidence of pulmonary emboli. There appeared to be endobronchial plugs in the lower lung pham. A 2D echocardiogram obtained during her last hospitalization revealed a left ventricular ejection fraction of about 60%. ASSESSMENT: 1. Chest pain, undetermined etiology. 2. Exacerbation of her asthma. 3. Cough. RECOMMENDATION: She is on budesonide, Solu-Medrol, Levaquin, DuoNeb aerosol treatments; continue those for the time being. We will add on montelukast and also add eformoterol to her bronchodilator regimen. We will continue to see how she responds. Cardiovascular evaluation may be warranted to evaluate her chest discomfort, although I do not think it is cardiac in nature. <ELECTRONICALLY SIGNED> By: Servando Saldivar MD 07/05/17 [id number] Valenzuela MD /nt
== END 2017-07-03 14:55 | disposition home or self-care (01) | DRG 189 ==
LOC: M.ERS 21:39 → M.2W 23:39 → M.TBA-ER 23:39 → M.2W 07-01 00:44
PROVIDERS: Nurse Practitioner; ADMIT Internal Medicine
DX: J96.01 Acute respiratory failure with hypoxia (principal); J45.901 Unspecified asthma with (acute) exacerbation; J98.11 Atelectasis; I10 Essential (primary) hypertension; J42 Unspecified chronic bronchitis; R07.89 Other chest pain; E66.9 Obesity, unspecified; D70.9 Neutropenia, unspecified; Z68.41 Body mass index [BMI] 40.0-44.9, adult; Z79.899 Other long term (current) drug therapy